=== PATIENT | female | born 1980 | race Caucasian/White ===

== ENCOUNTER 2018-06-04 02:51 | Emergency (ER) | payer SELFPAY ==
[~2018-06-04] VITALS: Ht 157.5 cm; Wt 74.8 kg
[2018-06-04 02:51] VITALS: BP 132/67
--- NOTE | 2018-06-04 02:51 | NUR ---
PT AMBULATES TO CHAIR E. ESCORTED BY RADHA CLIFFORD.
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
--- NOTE | 2018-06-04 02:56 | NUR ---
Dr. Ortega evaluating patient.
[2018-06-04 03:02] VITALS: BP 132/67
--- NOTE | 2018-06-04 03:02 | NUR ---
PATIENT BIB [employer]. PATIENT EXAMINED BY DR. WOODS. PATIENT MEDICALLY CLEARED AND RELEASED IN CUSTODY IN STABLE CONDITION. ORIGINAL PRE-BOOK FORM GIVEN TO [facility] [employer].
== END 2018-06-04 03:02 ==
LOC: MED 02:51
DX: Z02.89 Encounter for other administrative examinations (principal); V89.2XXA Person injured in unspecified motor-vehicle accident, traffic, initial encounter; Y93.89 Activity, other specified; Y92.89 Other specified places as the place of occurrence of the external cause; Y99.8 Other external cause status
CPT/HCPCS: 99283